=== PATIENT | male | born 1965 | race Native Hawaiian/Other Pacific Islander ===

== ENCOUNTER 2016-09-27 08:00 | Outpatient (CLI) | payer BC | END 2016-09-27 09:00 | disposition home or self-care (01) | LOC: NM 08:00 | DX: R10.11 Right upper quadrant pain (principal) | CPT/HCPCS: A9537 ==

== ENCOUNTER 2016-10-02 08:43 | Day surgery (SDC) | payer BC ==
[~2016-10-02] VITALS: Ht 182.9 cm; Wt 88.5 kg
[2016-10-02 10:34] LABS: PLATELET COUNT 268 K/uL (142-355)
[2016-10-02 10:42] LABS: POTASSIUM 3.8 mmol/L (3.6-5.2)
== END 2016-10-02 15:22 | disposition home or self-care (01) ==
LOC: OR 08:43
PROVIDERS: Student in an Organized Health Care Education/Training Program
PROC: 0FT44ZZ Resection of Gallbladder, Percutaneous Endoscopic Approach (ICD-10-PCS; principal; 2016-10-02)
PROC: 0WQF4ZZ Repair Abdominal Wall, Percutaneous Endoscopic Approach (ICD-10-PCS; 2016-10-02)
DX: K81.1 Chronic cholecystitis (principal); K42.9 Umbilical hernia without obstruction or gangrene; R10.11 Right upper quadrant pain
CPT/HCPCS: 80053; 85027; J0330; J0690; J1100; J1170; J2250; J2405; J2704; J2710; J2765; J3010; J3490

== ENCOUNTER 2018-05-21 15:25 | Emergency (ER) | payer BC ==
[~2018-05-21] VITALS: Ht 175.3 cm; Wt 98.9 kg
[2018-05-21 15:30] VITALS: BP 149/85; TEMP 98
[2018-05-21 16:34] LABS: POTASSIUM 4.9 mmol/L (3.6-5.2)
[2018-05-21 16:40] LABS: PLATELET COUNT 267 K/uL (142-355)
== END 2018-05-21 17:55 | disposition home or self-care (01) ==
LOC: ED 15:25
DX: R60.9 Edema, unspecified (principal); G45.9 Transient cerebral ischemic attack, unspecified; Q27.30 Arteriovenous malformation, site unspecified
CPT/HCPCS: 36415; 80053; 81000; 85027; 99283

== ENCOUNTER 2018-12-15 13:56 | Emergency (ER) | payer BC ==
[~2018-12-15] VITALS: Ht 175.3 cm; Wt 83.9 kg
[2018-12-15 14:02] VITALS: BP 95/57; TEMP 98.1
[2018-12-15 15:12] LABS: POTASSIUM 3.7 mmol/L (3.6-5.2)
[2018-12-15 15:17] LABS: PLATELET COUNT 394 K/uL (142-355)
== END 2018-12-15 15:55 | disposition home or self-care (01) ==
LOC: ED 13:56
PROVIDERS: Family Medicine
DX: R53.83 Other fatigue (principal); X30.XXXA Exposure to excessive natural heat, initial encounter; E86.0 Dehydration; K63.1 Perforation of intestine (nontraumatic); Z98.890 Other specified postprocedural states
CPT/HCPCS: 74022; 80053; 81000; 85027; 99283